=== PATIENT | female | born 1960 | race Caucasian/White ===

== ENCOUNTER 2017-03-05 05:55 | Emergency (ER) | payer OTHER ==
[2017-03-05 06:30] VITALS: BMI 32.1
--- NOTE | 2017-03-05 07:50 | PDOC ---
Attending Attestation - Resident Resident Name: Brian Cardenas - ED Attending Attestation I have performed the following: I have examined & evaluated the patient, The case was reviewed & discussed with the resident, I agree w/resident's findings & plan, Exceptions are as noted - HPI HPI: 03/05/17 08:19 - Physicial Exam PE: 03/05/17 08:26 GENERAL: Awake, alert, and fully oriented, in no acute distress HEAD: No signs of trauma, no temporal ttp EYES: PERRLA, EOMI, sclera anicteric, conjunctiva clear. Visual jain full, acuity 20/20 OU ENT: Auricles normal inspection, hearing grossly normal, nares patent, oropharynx clear without exudates. Moist mucosa NECK: Normal ROM, supple, no lymphadenopathy, JVD, or masses LUNGS: Breath sounds equal, clear to auscultation bilaterally. No wheezes, and no crackles HEART: Regular rate and rhythm, normal S1 and S2, no murmurs, rubs or gallops ABDOMEN: Soft, nontender, normoactive bowel sounds. No guarding, no rebound. No masses EXTREMITIES: Normal range of motion, no edema. No clubbing or cyanosis. No cords, erythema, or tenderness NEUROLOGICAL: Normal speech, cranial nerves intact, negative pronator drift, 5/ 5 strength in all 4 extremities, normal sensation in all 4 extremities, normal cerebellar exam, normal gait, normal reflexes and tone SKIN: Warm, Dry, normal turgor, no rashes or lesions noted. - Medical Decision Making 03/05/17 08:26 56-year-old female with no significant past medical history presents with right- sided throbbing headache, resolved room spinning dizziness, and left arm numbness. Vitals remarkable for elevated blood pressure to 170s systolic. Exam with photophobia on eye exam and completely intact neurologic exam. Presentation most likely consistent with a complex migraine with associated left arm numbness (although patient has no sensory deficits on exam). Will obtain a CT scan of her head to evaluate for any abnormalities. Will also treat her headache and reassess. If she has persistent left arm numbness, will consider a neuro consult and an MRI. 03/05/17 11:07 CT had an blood work unremarkable. After IV fluids, Tylenol, and Reglan, headache, and left arm numbness has completely resolved. Patient wishes to go home. Advised her to follow-up with a neurologist for her headaches, she reports she has had an MRI before for workup of her headaches which was normal but has never seen a neurologist. We have referred her to one. I discussed the physical exam findings, ancillary test results and final diagnoses with the patient. I answered all of the patient's questions. The patient was satisfied with the care received and felt comfortable with the discharge plan and treatment plan. The patient will call their primary care physician within 24 hours to arrange follow-up and will return to the Emergency Department with any new, persistent or worsening symptoms. Heart Score/ECG Review - History History: Slightly suspicious - Electrocardiogram EKG: Normal - Age Age: 45-65 - Risk Factors Risk Factors Heart Score: Yes Hx Obesity Based on the list above the patient has:: 1-2 risk factors - Troponin Troponin: </= normal limit - Score Heart Score - Total: 2 #1 03/05/17 08:34 Twelve-lead EKG was performed and reviewed by me. Normal sinus rhythm, rate 75, normal axis and intervals. No ST elevations or T-wave inversions.
--- NOTE | 2017-03-05 08:12 | PDOC ---
History of Present Illness - General Chief Complaint: Lightheaded Stated Complaint: DIZZINESS,NUMBNESS LT ARM Time Seen by Provider: 03/05/17 07:29 History Source: Patient Exam Limitations: No Limitations - History of Present Illness Initial Comments: 03/05/17 08:01 The patient is a 56F with no PMH who presents to the ED with complaints of headache, dizziness, and L arm numbness. The patient states that she woke up at 0300 this morning, then got up to go to the bathroom and felt a room spinning sensation. She says that she was unable to walk because she kept running into the wall. Her symptoms resolved an hour after their onset. She is also complaining of R sided h/a which is located behind her R eye and radiates across the R side of her head, described as pressure, with a gradual onset. She normally has headaches but states that this headache is different than her previous headaches. She is also complaining of L arm numbness which also started at 0300 this morning and is still presents. She denies CP, SOB, fever, chills, nausea, vomiting. Past History - Past Medical History Allergies/Adverse Reactions: Allergies Allergy/AdvReac Type Severity Reaction Status Date / Time Penicillins Allergy Severe Hives Verified 03/05/17 06:23 levofloxacin [From Levaquin] AdvReac Intermediate Swelling Verified 03/05/17 06: 22 Home Medications: Ambulatory Orders No Home Medications 1 ea [facility] ONCE 08/19/11 Anemia: Yes COPD: No GI Disorders: Yes (Colitis 8Y ago) Thyroid Disease: Yes - Surgical History Abdominal Surgery: No - Suicide/Smoking/Psychosocial Hx Smoking Status: No Smoking History: Never smoked Have you smoked in the past 12 months: No Number of Cigarettes Smoked Daily: 0 Information on smoking cessation initiated: No Hx Alcohol Use: No Drug/Substance Use Hx: No Substance Use Type: None Review of Systems - Review of Systems Able to Perform ROS?: Yes Comments:: 03/05/17 08:12 GENERAL/CONSTITUTIONAL: No fever or chills. No weakness. HEAD, EYES, EARS, NOSE AND THROAT: No change in vision. No ear pain or discharge. No sore throat. GASTROINTESTINAL: No nausea, vomiting, diarrhea, constipation, or abdominal pain. GENITOURINARY: No dysuria, frequency, hematuria, or change in urination. CARDIOVASCULAR: No chest pain, palpitations, or lightheadedness. RESPIRATORY: No cough, wheezing, shortness of breath, or hemoptysis. MUSCULOSKELETAL: Positive for neck pain. No joint or muscle swelling or pain. No back pain. SKIN: No rash or lesions. NEUROLOGIC: Positive for R sided h/a and L arm numbness. Positive for vertiginous symptoms. No tingling, weakness, loss of consciousness, or change in strength/sensation. ENDOCRINE: No increased thirst. No abnormal weight change. HEMATOLOGIC/LYMPHATIC: No anemia, easy bleeding, or history of blood clots. ALLERGIC/IMMUNOLOGIC: No hives or skin allergy. Is the patient limited Indian proficient: No *Physical Exam - Vital Signs Last Vital Signs Temp Pulse Resp BP Pulse Ox 97.5 F L 78 18 172/98 96 03/05/17 06:25 03/05/17 06:25 03/05/17 06:25 03/05/17 06:25 03/05/17 06:25 - Physical Exam Comments: 03/05/17 08:13 GENERAL: Well developed, well nourished. Awake and alert. No acute distress. HEENT: Photophobia in R eye. Normocephalic, atraumatic. Hearing grossly normal. Moist mucous membranes. PERRLA, EOMI. No conjunctival pallor. Sclera are non- icteric. Oropharynx is clear. NECK: Supple. Full ROM. No JVD. CARDIOVASCULAR: Regular rate and rhythm. No murmurs, rubs, or gallops. PULMONARY: No evidence of respiratory distress. Lungs clear to auscultation bilaterally. No wheezing, rales or rhonchi. ABDOMINAL: Soft. Non-tender. Non-distended. No rebound or guarding. GENITOURINARY: No CVA tenderness bilaterally. MUSCULOSKELETAL: Normal range of motion at all joints. No bony deformities or tenderness. EXTREMITIES: No cyanosis. No clubbing. No edema. No calf tenderness. SKIN: Warm and dry. Normal capillary refill. No rashes. No jaundice. NEUROLOGICAL: Alert, awake, appropriate. Cranial nerves 2-12 intact. No deficits to light touch and temperature in face, upper extremities and lower extremities. No motor deficits in the in face, upper extremities and lower extremities. Finger to nose normal b/l. Normal speech. Gait is normal without ataxia. PSYCHIATRIC: Cooperative. Good eye contact. Appropriate mood and affect. Heart Score/ECG Review - History History: Slightly suspicious - Electrocardiogram EKG: Normal - Age Age: 45-65 - Risk Factors Based on the list above the patient has:: No risk factors known - Troponin Troponin: </= normal limit - Score Heart Score - Total: 1 #1 ECG reviewed & interpreted by me at: 08:15 General ECG Interpretation: Sinus Rhythm, Normal Rate, Normal Intervals, No acute ischemic changes Compared to previous ECG there are: No significant change ED Treatment Course - LABORATORY CBC & Chemistry Diagram: 03/05/17 08:55 03/05/17 08:00 - RADIOLOGY Radiology Studies Ordered: Category Date Time Status HEAD CT WITHOUT CONTRAST [CT] Stat CT Scan 03/05/17 08:00 Ordered Medical Decision Making - Medical Decision Making 03/05/17 08:16 The patient is a 56F with no PMH who presents to the ED with complaints of resolved vertiginous symptoms, R sided headache, and L arm numbness. I am concerned for a stroke/TIA. Last known well is 11pm last night. 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 I am also concerned for ACS. Will r/o with EKG (normal) and troponin. Pending labs and CT head. Will monitor closely. 03/05/17 10:57 All labs WNL. EKG normal. Patient states she feels much better. Ready for d/c. *DC/Admit/Observation/Transfer Diagnosis at time of Disposition: Headache around the eyes - Discharge Dispostion Disposition: HOME Condition at time of disposition: Stable Admit: No - Referrals Referrals: Claudio Cifuentes MD [Primary Care Provider] - Woodrow Vee MD [Staff Physician] - - Patient Instructions Printed Discharge Instructions: DI for Migraine Additional Instructions: Please return to the ER if symptoms persist, worsen, or new symptoms arise. Please follow up with your primary care physician in 2-3 days. Please follow up with the neurologist (Dr. Vee) in 1-3 days. Please return to the ER if you have any signs or symptoms of chest pain, shortness of breath, uncontrollable fever, chills, nausea, vomiting, numbness, tingling, or weakness in any part of your body, changes in vision, or slurred speech. - Post Discharge Activity
[2017-03-05] MEDS ORDERED: SODIUM CHLORIDE 0.9% 500 ML INFUS.BAG IV ONE (08:32)
[2017-03-05] MEDS ORDERED: ACETAMINOPHEN 500 MG TABLET (FP) PO ONE (08:32)
[2017-03-05] MEDS ORDERED: METOCLOPRAMIDE HCL INJECTION 10 MG/2 ML VIAL IVPB ONE (08:33)
[2017-03-05] MEDS ORDERED: ACETAMINOPHEN 325 MG TABLET (FP) ONE (08:38)
[2017-03-05] MEDS ORDERED: METOCLOPRAMIDE HCL INJECTION 10 MG/2 ML VIAL ONE (08:38)
[2017-03-05 08:47] LABS: ALBUMIN 3.8 g/dl (3.4-5.0); ANION GAP 7 (8-16); BLOOD UREA NITROGEN 12 mg/dL (7-18); CALCIUM 8.8 mg/dL (8.5-10.1); CHLORIDE 107 mmol/L (98-107); CO2 26 mmol/L (21-32); CREATININE 0.6 mg/dL (0.55-1.02); GLUCOSE,RANDOM 116 mg/dL (74-106); SGPT/ALT 29 U/L (12-78); SODIUM 140 mmol/L (136-145)
[2017-03-05 08:51] LABS: ALK PHOS 110 U/L (45-117); BILIRUBIN,TOTAL 0.5 mg/dL (0.2-1.0); TOT PROT 8.2 g/dl (6.4-8.2)
[2017-03-05 08:53] LABS: MAGNESIUM 2.1 mg/dL (1.8-2.4); POTASSIUM 4.8 mmol/L (3.5-5.1); SGOT/AST 22 U/L (15-37)
[2017-03-05 09:19] LABS: BASO % 0.4 % (0-2.0); EOS % 1.2 % (0-4.5); HEMATOCRIT 40.9 % (32.4-45.2); HEMOGLOBIN 13.1 GM/dL (10.7-15.3); LYMPH % 21.5 % (8-40); MCH 27.5 pg (25.7-33.7); MCHC 32.1 g/dl (32.0-36.0); MEAN CELL VOLUME 85.5 fl (80-96); MEAN PLT VOLUME 9.2 fl (7.5-11.1); MONO % 5.3 % (3.8-10.2); NEUT % 71.6 % (42.8-82.8); PLATELET COUNT 226 K/MM3 (134-434); RBC 4.78 M/mm3 (3.60-5.2); RDW 14.5 % (11.6-15.6); WHITE BLOOD COUNT 6.2 K/mm3 (4.0-10.0)
[2017-03-05 11:44] VITALS: BP 133/87; PULSE 66; TEMP 98.1
--- NOTE | 2017-03-05 12:28 | EKG ---
Test Reason : Blood Pressure : / mmHG Vent. Rate : 075 BPM Atrial Rate : 075 BPM P-R Int : 148 ms QRS Dur : 090 ms QT Int : 382 ms P-R-T Axes : 058 -01 024 degrees QTc Int : 426 ms POOR DATA QUALITY, INTERPRETATION MAY BE ADVERSELY AFFECTED NORMAL SINUS RHYTHM NORMAL ECG WHEN COMPARED WITH ECG OF 04-MAY-2012 17:55, NO SIGNIFICANT CHANGE WAS FOUND Confirmed by SOPHY GTZ, FRANTZ ([id number]) on 03/05/2017 12:28:39 PM Referred By: Confirmed By:FRANTZ BECKETT MD
== END 2017-03-05 11:45 | disposition home or self-care (01) ==
LOC: JER 05:55
PROC: 3E033GC Introduction of Other Therapeutic Substance into Peripheral Vein, Percutaneous Approach (ICD-10-PCS; principal; 2017-03-05)
DX: G43.909 Migraine, unspecified, not intractable, without status migrainosus (principal)
CPT/HCPCS: 36415; 70450-TC; 80053; 82550; 83735; 84484; 85025; 93005; 93010; 99283-25

== ENCOUNTER 2022-07-20 06:49 | Observation (INO) | payer OTHER ==
[2022-07-20] MEDS ORDERED: SODIUM CHLORIDE 0.9% 1000 ML INFUS.BAG IV ONE (07:41)
[2022-07-20] MEDS ORDERED: MECLIZINE HCL 25 MG TABLET (FP) PO ONE (07:41)
[2022-07-20 07:42] LABS: BASO % 0.7 % (0-2.0); EOS % 1.3 % (0-4.5); HEMATOCRIT 39.1 % (32.4-45.2); HEMOGLOBIN 13.2 GM/dL (10.7-15.3); LYMPH % 20.3 % (8-40); MCHC 33.7 g/dl (32.0-36.0); MEAN CELL VOLUME 82.9 fl (80-96); MEAN PLT VOLUME 9.6 fl (7.5-11.1); MONO % 5.1 % (3.8-10.2); NEUT % 72.6 % (42.8-82.8); PLATELET COUNT 218 10^3/uL (134-434); RBC 4.71 M/mm3 (3.60-5.2); RDW 14.5 % (11.6-15.6); WHITE BLOOD COUNT 6.7 K/mm3 (4.0-10.0)
[2022-07-20] MEDS ORDERED: ONDANSETRON 4 MG/2 ML VIAL IVPUSH ONE (07:45)
[2022-07-20] MEDS ORDERED: MECLIZINE HCL 25 MG TABLET (FP) ONE (07:51)
[2022-07-20] MEDS ORDERED: ONDANSETRON 4 MG/2 ML VIAL ONE (07:51)
[2022-07-20 08:17] LABS: POTASSIUM 4.2 mmol/L (3.5-5.1)
[2022-07-20 08:18] LABS: CALCIUM 9.1 mg/dL (8.5-10.1)
[2022-07-20 08:19] LABS: ALBUMIN 3.6 g/dl (3.4-5.0); BLOOD UREA NITROGEN 13.1 mg/dL (7-18)
[2022-07-20 08:22] LABS: CREATININE 0.8 mg/dL (0.55-1.3)
[2022-07-20 08:24] LABS: BILIRUBIN,TOTAL 0.2 mg/dL (0.2-1); TOT PROT 8.2 g/dl (6.4-8.2)
[2022-07-20] MEDS ORDERED: LOSARTAN POTASSIUM 50 MG TABLET PO ONE (14:28)
[2022-07-20] MEDS: SODIUM CHLORIDE 0.45% 1,000 ML IV SCH (14:49)
[2022-07-20 15:13] VITALS: BMI 38.5
[2022-07-20] MEDS ORDERED: HYDROCHLOROTHIAZIDE 25 MG TABLET (FP) PO ONE (15:40)
[2022-07-21] MEDS: SODIUM CHLORIDE 0.45% 1,000 ML IV SCH ×2 (02:39→19:17)
[2022-07-21] MEDS ORDERED: ACETAMINOPHEN 325 MG TABLET (FP) PO ONE (03:46)
[2022-07-21 09:22] LABS: BASO % 0.5 % (0-2.0); EOS % 1.6 % (0-4.5); HEMATOCRIT 40.2 % (32.4-45.2); HEMOGLOBIN 13.4 GM/dL (10.7-15.3); LYMPH % 29.3 % (8-40); MCH 27.6 pg (25.7-33.7); MCHC 33.3 g/dl (32.0-36.0); MEAN CELL VOLUME 82.9 fl (80-96); MEAN PLT VOLUME 9.2 fl (7.5-11.1); MONO % 4.9 % (3.8-10.2); NEUT % 63.7 % (42.8-82.8); PLATELET COUNT 235 10^3/uL (134-434); RBC 4.84 M/mm3 (3.60-5.2); RDW 14.5 % (11.6-15.6); WHITE BLOOD COUNT 6.9 K/mm3 (4.0-10.0)
[2022-07-21 09:30] LABS: POTASSIUM 4.5 mmol/L (3.5-5.1)
[2022-07-21 09:38] LABS: ALBUMIN 3.5 g/dl (3.4-5.0); BLOOD UREA NITROGEN 8.6 mg/dL (7-18); CALCIUM 9.2 mg/dL (8.5-10.1)
[2022-07-21 09:40] LABS: BILIRUBIN,TOTAL 0.2 mg/dL (0.2-1); TOT PROT 7.6 g/dl (6.4-8.2)
[2022-07-21 09:41] LABS: CREATININE 0.7 mg/dL (0.55-1.3)
[2022-07-21] MEDS ORDERED: HYDROCHLOROTHIAZIDE 25 MG TABLET (FP) PO SCH (10:00)
[2022-07-21] MEDS: LOSARTAN POTASSIUM 50 MG TABLET PO SCH (10:16)
[2022-07-21] MEDS: MECLIZINE HCL 25 MG TABLET (FP) PO PRN (20:21)
[2022-07-21] MEDS ORDERED: INSULIN SLIDING SCALE (NOVOLOG) 1 VIAL SQ SCH (22:00)
[2022-07-22] MEDS: INSULIN SLIDING SCALE (NOVOLOG) 1 VIAL SQ SCH ×2 (06:33→12:01)
[2022-07-22] MEDS ORDERED: metFORMIN HCL 500 MG TABLET (FP) PO SCH (07:00)
[2022-07-22 08:31] VITALS: BP 141/84; PULSE 73; RESP 19; TEMP 97.8
[2022-07-22] MEDS: LOSARTAN POTASSIUM 50 MG TABLET PO SCH (09:52)
[2022-07-22] MEDS ORDERED: ENOXAPARIN NA (PORCINE) 40 MG/0.4 ML DISP.SYRIN SQ SCH (10:00)
[2022-07-22] MEDS: MECLIZINE HCL 25 MG TABLET (FP) PO PRN (15:48)
== END 2022-07-22 17:12 | disposition home or self-care (01) ==
LOC: JER 06:49 → JERBED 11:44 → J4S 13:52
PROVIDERS: ADMIT Internal Medicine; ATTEND Internal Medicine
PROC: 3E033GC Introduction of Other Therapeutic Substance into Peripheral Vein, Percutaneous Approach (ICD-10-PCS; principal; 2022-07-20)
PROC: 3E0337Z Introduction of Electrolytic and Water Balance Substance into Peripheral Vein, Percutaneous Approach (ICD-10-PCS; 2022-07-20)
PROC: 3E013GC Introduction of Other Therapeutic Substance into Subcutaneous Tissue, Percutaneous Approach (ICD-10-PCS; 2022-07-20)
DX: I16.0 Hypertensive urgency (principal); R42 Dizziness and giddiness; E11.65 Type 2 diabetes mellitus with hyperglycemia; E66.9 Obesity, unspecified; Z68.38 Body mass index [BMI] 38.0-38.9, adult; Z88.0 Allergy status to penicillin; Z88.1 Allergy status to other antibiotic agents
CPT/HCPCS: 0241U-QW; 36415; 70450-TC; 70551-TC; 80053; 80061; 82962; 83036; 84439; 84443; 84484; 85025; 93005; 93010; 93306-TC; 93880-TC; 97116-GP; 97161-GP; 99285-25; G0378

== ENCOUNTER 2022-09-27 09:17 | Emergency (ER) | payer OTHER ==
[2022-09-27 09:23] VITALS: BMI 34.4
[2022-09-27] MEDS ORDERED: ASPIRIN 81 MG CHEWABLE TABLETS PO ONE ×2 (09:52→10:05)
[2022-09-27] MEDS ORDERED: ASPIRIN 81 MG CHEWABLE TABLETS ONE (10:08)
[2022-09-27 10:21] LABS: HEMATOCRIT 36.6 % (32.4-45.2); HEMOGLOBIN 12.4 GM/dL (10.7-15.3); MCH 27.6 pg (25.7-33.7); MCHC 33.7 g/dl (32.0-36.0); MEAN CELL VOLUME 81.8 fl (80-96); PLATELET COUNT 227 10^3/uL (134-434); RBC 4.48 M/mm3 (3.60-5.2); RDW 14.6 % (11.6-15.6); WHITE BLOOD COUNT 5.9 K/mm3 (4.0-10.0)
[2022-09-27 10:22] LABS: BASO % 0.7 % (0-2.0); EOS % 1.8 % (0-4.5); LYMPH % 36.8 % (8-40); MONO % 8.8 % (3.8-10.2); NEUT % 51.9 % (42.8-82.8)
[2022-09-27 10:28] LABS: INR 1.07 (0.83-1.09); PROTHROMBIN TIME (PATIENT) 12.4 SEC (9.7-13.0)
[2022-09-27 10:30] LABS: ACTIVATED PTT 28.9 SECONDS (25.2-36.5)
[2022-09-27 10:40] LABS: POTASSIUM 3.7 mmol/L (3.5-5.1)
[2022-09-27 10:42] LABS: CALCIUM 8.8 mg/dL (8.5-10.1)
[2022-09-27 10:43] LABS: ALBUMIN 3.7 g/dl (3.4-5.0); BLOOD UREA NITROGEN 15.8 mg/dL (7-18); MAGNESIUM 1.9 mg/dL (1.8-2.4)
[2022-09-27 10:45] LABS: CREATININE 0.7 mg/dL (0.55-1.3)
[2022-09-27 10:47] LABS: BILIRUBIN,TOTAL 0.2 mg/dL (0.2-1); TOT PROT 7.3 g/dl (6.4-8.2)
[2022-09-27 11:38] VITALS: BP 133/85; PULSE 81; RESP 16; TEMP 98.3
== END 2022-09-27 13:30 | disposition home or self-care (01) ==
LOC: JER 09:17
DX: R07.9 Chest pain, unspecified (principal); R42 Dizziness and giddiness
CPT/HCPCS: 36415; 71046-TC-FY; 80053; 82550; 82962; 83735; 84484; 85025; 85610; 85730; 93005; 93010; 99285-25